=== PATIENT | female | born 1950 | race Two or more races ===

== ENCOUNTER 2021-06-24 08:06 | Emergency (ER) | payer MEDICARE, OTHER ==
[~2021-06-24] VITALS: Ht 162.6 cm; Wt 64.0 kg
--- NOTE | 2021-06-24 08:39 | NUR ---
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 THE PATIENT DENIES HAVING ANY PAIN/DISCOMFORT. IN ROOM AIR AND DENIES SOB. RESPIRATION REGULAR AND UNLABORED. ATTACHED TO THE MONITOR. WARM BLANKET PROVIDED FOR COMFORT. WILL CONTINUE TO MONITOR THE PATIENT.
[2021-06-24] MEDS ORDERED: METOPROLOL TARTRATE 25 MG TABLET ONE (09:28)
[2021-06-24] MEDS ORDERED: METOPROLOL TARTRATE 25 MG TABLET PO ONE (09:30)
[2021-06-24] MEDS ORDERED: METO1TAB25 PO (10:10)
--- NOTE | 2021-06-24 10:17 | NUR ---
LAUREL CALLED W. ETA OF 45 MINS.
--- NOTE | 2021-06-24 11:25 | NUR ---
Patient discharged to [facility] in stable condition. Written and verbal after care instructions given. Patient verbalizes understanding of instruction.
--- NOTE | 2021-06-24 11:25 | NUR ---
REPORT IS GIVEN TO [facility]
[2021-06-24 11:26] VITALS: BP 132/80
== END 2021-06-24 11:26 | disposition home or self-care (01) ==
LOC: ER 08:08
DX: I10 Essential (primary) hypertension (principal); M19.90 Unspecified osteoarthritis, unspecified site